=== PATIENT | female | born 1960 | race African-American/Black ===

== ENCOUNTER 2021-05-25 00:19 | Emergency (ER) | payer OTHER ==
[~2021-05-25] VITALS: Ht 165.1 cm; Wt 48.5 kg
--- NOTE | 2021-05-25 00:40 | NUR ---
Patient BIB [id number] from home for c/o abdominal pain with constipation x4 days.
--- NOTE | 2021-05-25 00:54 | NUR ---
DR KELLOGG AT BEDSIDE FOR MSE
[2021-05-25 01:14] LABS: CARBON DIOXIDE 29 mmol/L (21-32); CHLORIDE 109 mmol/L (98-107); CREATININE 1.5 mg/dL (0.6-1.3); GLUCOSE 117 mg/dL (74-106); POTASSIUM 4.2 mmol/L (3.5-5.1); UREA NITROGEN, BLOOD 29 mg/dL (7-18)
[2021-05-25 01:16] LABS: HEMATOCRIT 27.2 % (31.2-41.9); MEAN CORPUSCULAR HEMOGLOBIN 27.7 uug (24.7-32.8); MEAN CORPUSCULAR VOLUME 86.6 fL (75.5-95.3); PLATELET COUNT (AUTO) 436 K/uL (179-408)
[2021-05-25 01:19] LABS: ALANINE AMINOTRANSFERASE 21 U/L (14-59); ALKALINE PHOSPHATASE 106 U/L (50-136); ASPARTATE AMINOTRANSFERASE 22 U/L (15-37); BILIRUBIN,DIRECT < 0.1 mg/dL (0.0-0.2); BILIRUBIN,TOTAL 0.1 mg/dL (0.2-1.0); TOTAL PROTEIN, SERUM 7.4 g/dL (6.4-8.2)
[2021-05-25] MEDS ORDERED: MAGNESIUM CITRATE 296 ML BOTTLE PO ONE (03:00)
[2021-05-25] MEDS ORDERED: BISA-79 PO (03:06)
[2021-05-25] MEDS ORDERED: BISA10SU61 RC (03:06)
[2021-05-25] MEDS ORDERED: DOCU250C14 PO (03:06)
[2021-05-25] MEDS ORDERED: MAGNESIUM CITRATE 296 ML BOTTLE ONE (03:39)
[2021-05-25 04:50] VITALS: BP 155/69
--- NOTE | 2021-05-25 04:55 | NUR ---
Patient discharged to home in stable condition. Written and verbal after care instructions given. Patient son verbalizes understanding of instructions. Stressed follow up or return to ER for worsening s/s. Taken in patient own W/C.
--- NOTE | 2021-05-25 05:00 | NUR ---
Patient discharged to home in stable condition. Written and verbal after care instructions given. Patient verbalizes understanding of instructions. Stressed follow up or return to ER for worsening s/s. All belongings with pt.
== END 2021-05-25 04:55 | disposition home or self-care (01) ==
LOC: ER 00:21
DX: K59.00 Constipation, unspecified (principal); D64.9 Anemia, unspecified; Z89.412 Acquired absence of left great toe; Z89.411 Acquired absence of right great toe; L89.629 Pressure ulcer of left heel, unspecified stage; L89.619 Pressure ulcer of right heel, unspecified stage; E11.9 Type 2 diabetes mellitus without complications; G89.29 Other chronic pain; R03.0 Elevated blood-pressure reading, without diagnosis of hypertension; N20.0 Calculus of kidney
CPT/HCPCS: 36415; 71045; 85025; A4663